=== PATIENT | male | born 1995 | race Caucasian/White ===

== ENCOUNTER 2017-01-19 21:11 | Emergency (ER) | payer OTHER ==
[~2017-01-19] VITALS: Ht 172.7 cm; Wt 62.3 kg
[2017-01-19 21:13] VITALS: BP 128/78; PULSE 61; TEMP 36.9; Ht 172.7 cm; Wt 62.3 kg
[2017-01-19 21:26] VITALS: O2SAT 98
[2017-01-19] MEDS ORDERED: PENI-82 PO (21:27)
[2017-01-19] MEDS ORDERED: PENICILLIN HOME PACK 500MG (4 DOSES)BTL PO ONE (21:30)
--- NOTE | 2017-01-19 21:43 | EMERGENCY ROOM VISIT NOTE ---
History First contact with patient: 21:18 Chief Complaint: SORETHROAT Stated Complaint: SORE THROAT, HOLE INSIDE History of Present Illness The patient is a 21 year old male who presents to the Emergency Room with complaints of progressively worsening sore throat. The patient reports that he has had a sore throat for over a week. He denies any recent runny nose, congestion, cough or fevers. He reports that it appears like there is a hole in his throat. He denies any history of recurrent strep throat. He denies any neck pain or headache. He rates his discomfort a 7 out of 10. He has not taken any medications for his pain. Review of Systems 10 system review was performed and was negative except for pertinent positives and negatives as indicated in history of present illness Past Medical/Surgical History Medical Problems: (1) Abdominal pain (2) Acute pharyngitis (3) Blurred vision (4) Gastroenteritis (5) Nausea & vomiting (6) Right knee pain (7) Right knee pain (8) Subconjunctival hematoma Family History Cancer Diabetes mellitus Gallbladder disease Heart disease Hypertension Kidney disease Kidney stones Lung disease Seizures Social History Smoking Status: Current Every Day Smoker Alcohol Use: none Marital Status: in relationship Housing Status: lives with family Occupation Status: student Current/Historical Medications Scheduled Penicillin V Potassium (Veetids), 500 MG PO QID Allergies Coded Allergies: [place] (Verified Allergy, Unknown, "WILD JOSHUA REYNOLDS", 07/19/14) Physical Exam Vital Signs Date Time Temp Pulse Resp B/P Pulse Ox O2 Delivery O2 Flow Rate FiO2 01/19/17 21:26 98 Room Air 01/19/17 21:13 36.9 61 18 128/78 98 Room Air Pain Rating (0-10): 7.0 Physical Exam CONSTITUTIONAL: Healthy and well nourished. Alert and oriented X 3 with positive affect. Patient does not appear acutely ill or toxic. HEENT: Normocephalic, atraumatic. Pupils equal, round and reactive. Ears and nares are clear. OROPHARYNX: Examination shows bilateral tonsillar hypertrophy, right worse than left with mild exudates. Negative trismus. No vesicular lesions. LYMPHATICS: Patient has anterior cervical chain adenopathy, right worse than left. NECK: Full active range of motion without discomfort. No nuchal rigidity. RESPIRATORY: Clear to auscultation bilaterally with no wheezing, crackles, rhonchi or stridor. CARDIOVASCULAR: Regular rate and rhythm with no murmurs, rubs or gallops. MUSCULOSKELETAL: Full range of motion of all joints without discomfort. INTEGUMENTARY: No rash or other significant dermatologic conditions noted. NEUROLOGIC: Facial sensations are intact. Medical Decision & Procedures Medications Administered Medications (Trade) Dose Ordered Sig/Dillan Route Start Time Stop Time Status Last Admin Dose Admin Penicillin V Potassium (Pen-Vk 500MG Home Pack) 1 homepack UD ONCE PO 01/19/17 21:30 01/19/17 21:31 DC 01/19/17 21:36 1 HOMEPACK ED Course Patient history and physical exam were performed. Nurse's notes were reviewed. The patient will empirically be treated with Pen-Vee K antibiotics. He was encouraged to alternate ibuprofen and Tylenol as needed for pain. Follow-up with family doctor if symptoms are not improving within the next week, and return to the emergency department for any significantly worsening symptoms. The patient was provided a home pack for Pen-Vee K antibiotics, and refused any analgesics while in the emergency department. He rated his discomfort a 5 out of 10 at the conclusion of my exam. Impression Primary Impression: Acute tonsillitis Additional Impression: Cervical lymphadenitis Departure Information Dispostion Home / Self-Care Prescriptions Penicillin V Potassium (Veetids) 500 Mg Tab 500 MG PO QID, #40 TAB Prov: Roni Dickey PA 01/19/17 Forms HOME CARE DOCUMENTATION FORM, IMPORTANT VISIT INFORMATION Patient Instructions Sore Throats Self Care, [facility] Additional Instructions Complete all Pen-Vee K antibiotics as prescribed. Read sore throat handout. Ibuprofen 800 mg and/or Tylenol 1000 mg every 8 hours. You may also alternate these medications for more effective pain relief: Ibuprofen --4 HRS--> Tylenol --4 HRS--> ibuprofen --4 HRS--> Tylenol .... Follow-up with your family doctor if symptoms are not improving within the next 5-7 days. Return to the emergency department for any significantly worsening symptoms or developing fever. Problem Qualifiers Primary Impression: Acute tonsillitis Pharyngitis/tonsillitis etiology: unspecified etiology Qualified Codes: J03.90 - Acute tonsillitis, unspecified
== END 2017-01-19 21:37 | disposition home or self-care (01) ==
LOC: C.EDB 21:12 → C.EDD 21:37
DX: J03.90 Acute tonsillitis, unspecified (principal); L04.0 Acute lymphadenitis of face, head and neck; Z80.9 Family history of malignant neoplasm, unspecified; Z83.3 Family history of diabetes mellitus; Z83.79 Family history of other diseases of the digestive system; Z82.49 Family history of ischemic heart disease and other diseases of the circulatory system; Z84.1 Family history of disorders of kidney and ureter; Z83.6 Family history of other diseases of the respiratory system; F17.210 Nicotine dependence, cigarettes, uncomplicated

== ENCOUNTER 2017-09-14 19:46 | Emergency (ER) | payer OTHER ==
[~2017-09-14] VITALS: Ht 177.8 cm; Wt 64.0 kg
[2017-09-14 19:51] VITALS: TEMP 36.9; Ht 177.8 cm; Wt 64.0 kg
[2017-09-14] MEDS ORDERED: IBUPROFEN 600 MG TAB PO STA (20:30)
[2017-09-14] MEDS ORDERED: AMOXICILLIN 250 MG CAP PO STA (20:30)
[2017-09-14] MEDS ORDERED: AMOX875T3 PO (20:44)
--- NOTE | 2017-09-14 20:49 | EMERGENCY ROOM VISIT NOTE ---
ED Visit Note First contact with patient: 20:15 CHIEF COMPLAINT: Earache HISTORY OF PRESENT ILLNESS: This 21-year-old male presents to the emergency department and states they have had an earache since this morning. The patient reports URI symptoms for the past week, including cough, congestion, sore throat , and drainage. This morning he woke up with bilateral ear pain, he took some ibuprofen and it went away and he felt better all day. This afternoon he started to notice increasing pain in his right ear, and reports decreased hearing from the right ear. He states the pain has been getting progressively worse, is now constant, throbbing and "feels like it's on fire," 01/10. He has not taken any additional medication for his pain since this morning. He denies any drainage from the ear. He denies inserting anything into the ears. He denies any fevers or chills, headache, vision changes, dizziness or syncope, chest pain, shortness of breath, abdominal pain, nausea or vomiting, or rash. REVIEW OF SYSTEMS: A complete 10 system review of systems was completed with positives and pertinent negatives listed in the HPI. ALLERGIES: No known medication allergies MEDICATIONS: Patient denies taking any daily medications PMH: No significant past medical or surgical history. Immunizations are up to date. SH: Lives at home. Denies tobacco use, alcohol, recreational drugs PHYSICAL EXAM: Vital Signs: Reviewed Nurse's notes, afebrile. GENERAL: Pleasant and cooperative, in no acute distress, well-developed, well- nourished. SKIN: Normal, pink, warm, dry. No rashes. HEART: Regular rate and rhythm without murmurs gallops or rubs. LUNGS: Clear to auscultation and breath sounds equal, no wheezes, rales, or rhonchi. ABDOMEN: Soft, nontender, nondistended, active bowel sounds throughout. MOUTH: The pharynx is slightly erythematous, the tonsils are not enlarged and no exudate. The airway is patent. EARS: The right tympanic membrane is erythematous, inflamed and bulging. There is purulent fluid behind the TM noted. No evidence of a ruptured TM, no drainage within the ear canal. The right external auditory canal is clear with no tragus tenderness. The left tympanic membrane is slightly erythematous and dull, no bulging and no purulent fluid noted. The left external auditory canal is clear. LYMPH: There is no cervical, submandibular, or submental lymphadenopathy. NECK: Full range of motion of the neck without any pain. No midline tenderness to palpation. ED COURSE: I examined the patient. Right TM consistent with otitis media, suspect bacterial given the purulence. No evidence of ruptured TM on exam. The patient was given Motrin for pain and first dose of amoxicillin, Rx for amoxicillin sent to pharmacy. Patient was instructed on symptomatic management , medications, and follow-up, as well as return precautions should his symptoms worsen, he verbalized understanding. The patient was discharged home in stable condition and ambulatory. Blood pressure screening: The patient was found to have an elevated blood pressure, this was felt to be situational. Problem List Medical Problems: (1) Abdominal pain Status: Resolved (2) Acute pharyngitis Status: Resolved (3) Blurred vision Status: Resolved (4) Gastroenteritis Status: Resolved (5) Nausea & vomiting Status: Resolved (6) Right knee pain Status: Resolved (7) Right knee pain Status: Resolved (8) Subconjunctival hematoma Status: Resolved Current/Historical Medications Scheduled Amoxicillin (Amoxil), 1 TAB PO BID Allergies Coded Allergies: [place] (Verified Allergy, Unknown, "WILD JOSHUA REYNOLDS", 07/19/14) Vital Signs Date Time Temp Pulse Resp B/P (MAP) Pulse Ox O2 Delivery O2 Flow Rate FiO2 09/14/17 21:12 60 16 139/79 97 09/14/17 21:02 63 16 143/81 97 Room Air 09/14/17 19:51 36.9 78 18 142/87 100 Room Air Medications Administered Medications (Trade) Dose Ordered Sig/Dillan Route Start Time Stop Time Status Last Admin Dose Admin Ibuprofen (Motrin Tab) 600 mg NOW STAT PO 09/14/17 20:30 09/14/17 20:35 DC 09/14/17 20:42 600 MG Amoxicillin (Amoxil Cap) 1,000 mg NOW STAT PO 09/14/17 20:30 09/14/17 20:35 DC 09/14/17 20:41 1,000 MG Departure Information Impression Primary Impression: Right otitis media with effusion Dispostion Home / Self-Care Condition GOOD Prescriptions Amoxicillin (AMOXIL) 875 Mg Tab 1 TAB PO BID for 10 Days, #20 TAB Prov: Emili Garcia CRNP 09/14/17 Referrals No Doctor, Assigned (PCP) Patient Instructions ED Otitis Media Acute Adult, My [facility] Additional Instructions You have been treated in the Emergency Department for an Inner Ear Infection ( Otitis Media). You were prescribed amoxicillin to be taken twice a day for 10 days. This is an antibiotic. All antibiotics have the potential to cause diarrhea. Stop this medication and contact a medical provider if you were to develop any significant adverse side effects including: wheezing, shortness of breath, passing out, vomiting, or a diffuse rash. Always take antibiotics as directed and COMPLETE the ENTIRE course regardless of the improvement of your symptoms. For pain and fever control, you can use the following [id number] medicines (if >12 yo): - Regular strength (325mg/tab) Tylenol (acetaminophen) 2 tabs every 4-6 hours as needed. Do not exceed 10 tablets in a 24 hour period. Avoid taking more than 3000 mg of Tylenol per day. This includes any other sources of acetaminophen you may take on a regular basis. - Regular strength (200 mg/tab) Advil (ibuprofen) 3 tabs every 6-8 hours as needed. Do not exceed a dose of 2400 mg per day. You may apply warm compresses over the ER for additional comfort. You may also try nasal saline and Afrin nasal spray to help reduce nasal congestion. This may also help improve your ear pain. These nasal sprays are available [id number]. You should follow-up with your Primary Care Provider from today's Emergency Department visit. Return to the emergency department if you develop the following symptoms despite treatment course outlined above: Severe headaches, fevers > 101.5, severe pain that is not relieved with medication, increased redness or swelling of the outer ear, complete loss of hearing, discharge from the ear, or any other concerns. Work Instructions Return To Work: 1 day
[2017-09-14 21:12] VITALS: BP 139/79; PULSE 60; O2SAT 97
== END 2017-09-14 21:13 | disposition home or self-care (01) ==
LOC: C.EDB 19:47 → C.EDD 21:13
DX: H66.91 Otitis media, unspecified, right ear (principal); Z87.19 Personal history of other diseases of the digestive system; Z91.018 Allergy to other foods